=== PATIENT | male | born 1975 | race Caucasian/White ===

== ENCOUNTER → 2021-06-24 14:56 | Outpatient (CLI) | payer OTHER, SELFPAY ==
[2021-06-24 15:46] LABS: Semen Sperm Prescence Post-Vas Present (ABSENT)
== END ==
PROVIDERS: PCP Family Medicine; Referring Provider Specialist; Visit Provider Specialist
DX: Z98.52 Vasectomy status (principal)
CPT/HCPCS: 89321

== ENCOUNTER → 2021-08-05 15:54 | Outpatient (ROUT) | payer OTHER, SELFPAY ==
[2021-08-05 16:19] LABS: Semen Sperm Prescence Post-Vas Present (ABSENT)
== END ==
PROVIDERS: PCP Family Medicine; Visit Provider Specialist
DX: Z98.52 Vasectomy status (principal)
CPT/HCPCS: 89321

== ENCOUNTER → 2021-09-27 16:04 | Outpatient (CLI) | payer OTHER, SELFPAY ==
[2021-09-27 17:11] LABS: Semen Sperm Prescence Post-Vas Absent (ABSENT)
== END ==
PROVIDERS: PCP Family Medicine; Referring Provider Specialist; Visit Provider Specialist
DX: Z98.52 Vasectomy status (principal)
CPT/HCPCS: 89321

== ENCOUNTER → 2022-03-14 16:28 | Outpatient (CLI) | payer OTHER, SELFPAY ==
[2022-03-14 17:51] LABS: Semen Sperm Prescence Post-Vas Absent (ABSENT)
== END ==
PROVIDERS: PCP Family Medicine; Referring Provider Specialist; Visit Provider Specialist
DX: Z98.52 Vasectomy status (principal)
CPT/HCPCS: 89321

== ENCOUNTER → 2023-06-27 09:54 | Outpatient (CLI) | payer OTHER, SELFPAY ==
--- NOTE | 2023-06-27 09:55 | DI.CT.S_ITS ---
PROCEDURE: CT SINUS SCREEN WO CON INDICATIONS: Chronic pansinusitis TECHNIQUE: Noncontrast 3.0 mm axial images acquired from the frontal sinuses to the mid-sella, with coronal and sagittal reformats. For radiation dose reduction, the following was used: automated exposure control, adjustment of mA and/or kV according to patient size. COMPARISON: None. FINDINGS: Image quality: Excellent. Maxillary Sinuses: No bony remodeling or destruction. Sinuses are clear. Ethmoid Air Cells: No bony remodeling or destruction. Sinuses are clear. Sphenoid Sinuses: No bony remodeling or destruction. Pneumatization of the left sphenoid sinus, benign variant. Sinuses are clear. Frontal Sinuses: No bony remodeling or destruction. Sinuses are clear. Ostiomeatal Complexes: Ostiomeatal complexes are patent. No Catarina cells. Miscellaneous: Visualized intra-orbital contents are normal. No yuval bullosa or paradoxical turbinate curvature. Slight rightward nasal septal deviation. IMPRESSION: No CT evidence of acute or chronic sinusitis. Dictated by: Perla Ford M.D. on 06/27/2023 at 13:27 Approved by: Perla Ford M.D. on 06/27/2023 at 14:22
== END ==
LOC: CT 09:54
PROVIDERS: PCP Family Medicine; Referring Provider Otolaryngology; Visit Provider Otolaryngology
DX: R09.82 Postnasal drip (principal); J32.4 Chronic pansinusitis
CPT/HCPCS: 70486

== ENCOUNTER → 2023-10-05 07:14 | Outpatient (CLI) | payer OTHER, SELFPAY ==
--- NOTE | 2023-10-05 07:16 | DI.US.S_ITS ---
PROCEDURE: US SCROTUM INDICATIONS: BILAT TESTICLE PAIN/MASS PALPATED ON SUPERIOR RT TECHNIQUE: Real-time scanning was performed of the scrotum and testicles, with image documentation. Color and pulse Doppler interrogation was performed of both testicles. COMPARISON: None. FINDINGS: Right: Testicle is normal in size at 4.4 x 2.2 x 3.1 cm, and homogenous in echotexture. Epididymis is normal in overall size and morphology. Mildly increased vascularity in the right epididymis. No hydrocele or varicoceles. Overlying scrotal skin is thickened. Left: Testicle is normal in size at 2.4 x 1 x 1.8 cm, and homogeneous in echotexture. Epididymis is normal in overall size and morphology. No hydrocele or varicoceles. Overlying scrotal skin is normal in thickness. Doppler: Color and pulse Doppler demonstrate normal and symmetric arterial flow in both testicles. IMPRESSION: 1. Asymmetrically enlarged right testicle compared to the contralateral side with no discrete fluid collection or mass. There is flow within the testicle. Findings may represent sequela of testicular torsion-detorsion. Correlate with physical exam and consider short interval ultrasound follow-up. 2. Thickened right scrotal wall with mildly increased vascularity of the epididymis, likely reactive. 3. Normal left testicle. Dictated by: Perla Ford M.D. on 10/05/2023 at 15:13 Approved by: Perla Ford M.D. on 10/05/2023 at 15:50
== END ==
PROVIDERS: PCP Registered Nurse; Referring Provider Registered Nurse; Visit Provider Registered Nurse
DX: N44.8 Other noninflammatory disorders of the testis (principal); N50.811 Right testicular pain; Z98.52 Vasectomy status
CPT/HCPCS: 76870

== ENCOUNTER 2024-02-23 10:42 | Day surgery (SDC) | payer OTHER, SELFPAY ==
--- NOTE | 2024-02-23 | PATH_ITS ---
[facility] Accession Number: [id number] No. of containers..01 Tissue . 01 Material submitted: . rectum - RECTAL POLYP . 01 Diagnosis: RECTAL POLYP: Tubular adenoma. STO 02/25/2024 1530 Local . 01 Electronically signed: . Shady Aguilar MD, Pathologist NPI- [id number] . 01 Gross description: . RECTAL POLYP: Received in formalin is 1 fragment(s) of [place], soft tissue measuring 0.3 x 0.3 x 0.2 cm submitted entirely in 1 cassette(s) /JAMES 02/25/2024 1530 Local . 01 Pathologist provided ICD-10: D12.8 . 01 CPT . 270518 Specimen Comment: A courtesy copy of this report has been sent to [phone] Performed at: [address] [id number] MD Shady Aguilar MD Phone: [phone]
--- NOTE | 2024-02-23 10:47 | P.HP_ITS ---
History of Present Illness History of Present Illness Date Patient Seen: 02/23/24 Time Patient Seen: 10:48 Chief complaint: Colonoscopy Narrative: 48-year-old man here for 1st time screening colonoscopy. No family history of colon cancer. No abdominal concerns today. 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 Smoking Status: Never smoker alcohol intake: current caffeine: Yes Type(s) of exercise: walking frequency: 3-4 times per week duration: 15-30 minutes/day Meds Home Medications and Allergies Home Medications Medication Instructions Recorded Confirmed Type amino acids [Amino Acid] PO DAILY 03/28/21 03/28/21 History loratadine 10 mg tablet (Claritin) 10 mg PO DAILY 03/28/21 03/28/21 History omega-3 fatty acids 1,000 mg 2,000 mg PO DAILY 03/28/21 03/28/21 History capsule (Fish Oil Concentrate) red yeast rice PO DAILY 03/28/21 03/28/21 History peg 3350-electrolytes 236 240 ml PO Q10M #4,000 mL 01/14/24 Rx gram-22.74 gram-6.74 gram-5.86 gram solution (Golytely) Allergies Allergy/AdvReac Type Severity Reaction Status Date / Time No Known Drug Allergies Allergy Verified 02/23/24 10:52 Exam Narrative Exam Narrative: General adult man alert oriented no acute distress Chest nonlabored respiration Extremities warm well perfused Assessment & Plan Assessment & Plan narrative: The patient requires colorectal screening and colonoscopy is recommended. Technical details were discussed. Risks, benefits, alternatives explained. Risks including but not limited to myocardial infarction, aspiration, bleeding, pain, missed lesion, incomplete examination, need for further radiographic studies, intestinal injury, and need for major abdominal surgery were discussed. All questions were answered to their satisfaction, and they are in agreement with this plan. Time-Based Coding :: [TOTAL MINUTES] spent with patient and on the chart (including review of chart, obtaining history, exam, reviewing outside data, placing orders, documenting exam and treatment plan, and counseling patient) on [DATE].
[2024-02-23] MEDS: LACTATED RINGERS 1,000 ML 42 ML IV (10:53)
[2024-02-23 10:55] VITALS: BP 138/95; PULSE 80; RESP 16; TEMP 36.5; O2SAT 100
[2024-02-23 11:26] VITALS: BP 128/54; PULSE 73; RESP 17; TEMP 36.1; O2SAT 96
--- NOTE | 2024-02-23 11:26 | P.OP.COLON_ITS ---
Operative Date/Time/Diagnoses Date of procedure: 02/23/24 Time of procedure: 11:26 Pre-op diagnosis: Colorectal Screening Procedure & Clinicians Study performed: Colonoscopy and polypectomy Same procedure as scheduled: Yes Indications: Screening Surgeon: Terry Bucio Procedure Notes Procedure in detail: The history and physical was performed/updated and the patient is ASA class is 2. The procedure was discussed in detail with the patient. Potential risks complications including infection, bleeding, missed diagnosis, perforation, need for surgery, and were explained. Their questions were answered and informed consent was obtained. Patient was brought to the procedure room and placed standard monitoring equipment. The patient's vital signs were monitored continuously throughout the entire procedure. Prior to starting time-out was performed. The patient was placed in the left lateral recumbent position. Procedural sedation was administered by anesthesia. Examination began with a thorough inspection of the perianal area there was no evidence of fissures, fistulae, external hemorrhoids or cutaneous malignancy. The colonoscopy scope was then placed into the anal canal and was advanced to the cecum, which was identified by the ileocecal valve, the appendiceal orifice and the confluence of the taenia. The scope was then slowly withdrawn examining colon thoroughly in all directions, irrigating it of any residual stool. The scope was retroflexed within the rectum The patient tolerated the procedure well. They will be discharged once criteria are met. The prep was of good/excellent quality. The withdrawl time was 7 minutes. FINDINGS * 3 mm rectal polyp removed with biopsy forceps Specimen(s): other (Rectal polyp) Impression: Colonic polyp x1 Post-procedure Plan for aftercare: Follow up dependent on pathology findings likely 5 years Disposition: same day surgery
[2024-02-23 11:30] VITALS: BP 105/75; PULSE 74; RESP 12; TEMP 36.2; O2SAT 98
[2024-02-23 11:41] VITALS: BP 107/74; PULSE 71; RESP 19; TEMP 36.2; O2SAT 98
== END 2024-02-23 12:03 | disposition home or self-care (01) ==
PROVIDERS: PCP Registered Nurse; Referring Provider Surgery; Visit Provider Surgery
PROC: 0DJD8ZZ Inspection of Lower Intestinal Tract, Via Natural or Artificial Opening Endoscopic (ICD-10-PCS; CPT 45378; principal; 2024-02-23 11:45)
DX: Z12.11 Encounter for screening for malignant neoplasm of colon (principal); D12.8 Benign neoplasm of rectum
CPT/HCPCS: 45380; J2704

== ENCOUNTER 2024-04-29 14:00 | Day surgery (SDC) | payer OTHER, SELFPAY ==
[2024-04-27 11:17] VITALS: BMI 27.0
--- NOTE | 2024-04-29 14:18 | PM.HP.1 ---
History of Present Illness History of Present Illness Date Patient Seen: 04/29/24 Time Patient Seen: 14:19 Chief complaint: Hernia Repair - Umbilical Narrative: 49M here for elective umbilical hernia repair. No interval change in health. 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 Smoking Status: Never smoker alcohol intake: current substance use type: does not use caffeine: Yes Type(s) of exercise: walking frequency: 3-4 times per week duration: 15-30 minutes/day Meds Home Medications and Allergies Home Medications Medication Instructions Recorded Confirmed Type loratadine 10 mg tablet (Claritin) 10 mg PO DAILY 03/28/21 03/24/24 History omega-3 fatty acids 1,000 mg 2,000 mg PO DAILY 03/28/21 03/24/24 History capsule (Fish Oil Concentrate) cholecalciferol (vitamin D3) PO DAILY 03/24/24 03/24/24 History coenzyme Q10 [Ultra CoQ10] PO DAILY 03/24/24 03/24/24 History diphenhydramine HCl [Benadryl] PO PRN 03/24/24 03/24/24 History fluticasone propionate [Flonase intranasal PRN 03/24/24 03/24/24 History Allergy Relief] vitamin E (dl, acetate) PO DAILY 03/24/24 03/24/24 History Allergies Allergy/AdvReac Type Severity Reaction Status Date / Time No Known Drug Allergies Allergy Verified 04/29/24 14:20 Exam Narrative Exam Narrative: Gen-Adult man alert and oriented Abdomen-Soft non tender Ext-WWP Assessment & Plan Assessment and plan (1) Umbilical hernia: Qualifiers: Obstruction and gangrene presence: without obstruction or gangrene Qualified Code(s): K42.9 - Umbilical hernia without obstruction or gangrene Status: Acute Assessment & Plan narrative: 49M with symptomatic reducible umbilical hernia here for elective repair. Overview of the operation risks benefits and postoperative course reviewed. His questions have been answered and he provides informed consent to proceed. Time-Based Coding :: [TOTAL MINUTES] spent with patient and on the chart (including review of chart, obtaining history, exam, reviewing outside data, placing orders, documenting exam and treatment plan, and counseling patient) on [DATE].
[2024-04-29 14:21] VITALS: BMI 27.0
[2024-04-29 14:24] VITALS: BP 141/91; PULSE 88; RESP 16; TEMP 36.2; O2SAT 100
[2024-04-29] MEDS: LACTATED RINGERS 1,000 ML 42 ML IV (14:50)
[2024-04-29] MEDS: CEFAZOLIN 2 GM/100 ML PREMIX 100 ML IV (14:57)
--- NOTE | 2024-04-29 15:08 | SUR.OPER ---
Supine on padded OR bed, head on pillow, arms secured on padded arm boards at <90 degrees abduction, legs uncrossed, safety belt at thigh, tape over blanket over lower legs.
[2024-04-29] MEDS: BUPIVACAINE 0.25% (PF) VIAL 30 ML INJ (15:14)
[2024-04-29 15:44] VITALS: BP 118/84; PULSE 80; RESP 14; TEMP 36.4; O2SAT 95
--- NOTE | 2024-04-29 15:48 | PM.OP.1 ---
Operative Date/Time/Diagnoses Date of procedure: 04/29/24 Time of procedure: 15:48 Pre-op diagnosis: Umbilical hernia Post-op diagnosis: same Procedure & Clinicians Procedure: Open umbilical hernia repair with mesh Same procedure as scheduled: Yes Indications: Symptomatic reducible umbilical hernia Surgeon: Terry Bucio Click Yes if Unassisted: Yes Operative Notes Findings: 2 cm fascial defect containing omentum Specimen(s): none sent Estimated Blood Loss (mL): 5 Procedure in detail: Patient was brought to the operating room placed supine on the table. Bilateral lower extremity compression devices were applied. General anesthesia was induced and they were intubated with an endotracheal tube. They received 2 g of Ancef prior to skin incision. They were prepped and draped in sterile fashion. A time-out was performed. A curvilinear incision was made inferior to the umbilicus. The subcutaneous tissues were divided. The umbilical hernia was identified and the hernia sac was dissected off the umbilical skin and circumferentially off of the fascia defect. The hernia sac was sharply opened and contained viable omentum. The omentum was reduced back into the abdomen. Using blunt dissection I carefully carefully freed the hernia sac from beneath the fascia defect in order to accomodate the mesh. The fascia defect was 2.0 cm in maximal diameter. A Bard Ventralex ST hernia patch 6.4 cm was inserted beneath the fascia defect and above the peritoneum in a sublay position. The mesh was anchored in multiple locations using Ethibond suture to the fascia and the fascial defect was closed over the mesh. The umbilical skin was tacked to the subcutaneous tissues and then the remainder of the subcutaneous tissues were reapproximated using 3 0 Vicry,l skin closed with 4 0 Monocryl followed by the application of Dermabond and Steri-Strips. Sponge instrument count at the end of the operation was correct. Patient tolerated procedure well was extubated and transferred to postoperative care unit in stable condition. Complications: none Post-operative Condition: stable Disposition: same day surgery
[2024-04-29 15:49] VITALS: BP 115/85; PULSE 77; RESP 6; O2SAT 96
[2024-04-29 15:55] VITALS: BP 131/88; PULSE 79; RESP 18; O2SAT 97
[2024-04-29 16:09] VITALS: BP 130/89; PULSE 73; RESP 14; O2SAT 98
[2024-04-29 16:11] VITALS: BP 128/90; PULSE 75; RESP 11; TEMP 36.6; O2SAT 97
[2024-04-29] MEDS: OXYCODONE IR 5 MG TABLET PO (16:31)
== END 2024-04-29 16:44 | disposition home or self-care (01) ==
PROVIDERS: PCP Registered Nurse; Referring Provider Surgery; Visit Provider Surgery
PROC: (CPT 49591; principal; 2024-04-29 15:30)
DX: K42.9 Umbilical hernia without obstruction or gangrene (principal)
CPT/HCPCS: 49591; C1781; J0690; J1100; J1885; J2250; J2405; J2704; J3010